=== PATIENT | male | born 1980 ===

== ENCOUNTER 2020-12-11 03:17 | Emergency (ER) | payer MEDICAID ==
[~2020-12-11] VITALS: Ht 180.3 cm; Wt 78.0 kg
[2020-12-11 03:20] VITALS: BP 179/100
--- NOTE | 2020-12-11 03:20 | NUR ---
"I NEED A BREATHING TREATMENT" MILD TO MODERATE WOB NOTED, WHEEZES TO ALL TUCKER, POX 95% DENIES FEVERS, MUSCLE ACHES, CHANGE IN TASTE/SMELL
[2020-12-11] MEDS ORDERED: ALBUTEROL/IPRATROPIUM 2.5MG/0.5MG, 3 ML NPPB ONE (03:30)
[2020-12-11] MEDS ORDERED: ALBUTEROL/IPRATROPIUM 2.5MG/0.5MG, 3 ML ONE (03:36)
--- NOTE | 2020-12-11 03:44 | NUR ---
MEDICATED PER EMAR WITH PO PREDNISONE AND DUONEB X1
== END 2020-12-11 04:02 | disposition home or self-care (01) ==
LOC: ED 03:50
DX: J45.41 Moderate persistent asthma with (acute) exacerbation (principal); R06.00 Dyspnea, unspecified; F17.210 Nicotine dependence, cigarettes, uncomplicated; I50.9 Heart failure, unspecified
CPT/HCPCS: 94640; 99283; 99406; J7512